=== PATIENT | male | born 1980 | race Caucasian/White ===

== ENCOUNTER → 2018-09-18 | Outpatient (CLI) | payer OTHER | LOC: MHCPAIN 14:25 | DX: G89.29 Other chronic pain (principal); M47.817 Spondylosis without myelopathy or radiculopathy, lumbosacral region; M53.3 Sacrococcygeal disorders, not elsewhere classified | CPT/HCPCS: G0463 ==

== ENCOUNTER → 2018-10-04 | Outpatient (CLI) | payer OTHER | LOC: MHCPAIN 08:54 | DX: M47.817 Spondylosis without myelopathy or radiculopathy, lumbosacral region (principal); M54.16 Radiculopathy, lumbar region | CPT/HCPCS: J1040; Q9967 ==

== ENCOUNTER → 2022-12-01 | Outpatient (CLI) | payer OTHER | LOC: COL.PUL 10:43 | DX: J45.40 Moderate persistent asthma, uncomplicated (principal) ==